=== PATIENT | female | born 1955 | race Two or more races ===

== ENCOUNTER 2021-12-29 10:29 | Day surgery (SDC) | payer BC ==
[2021-12-22 11:45] VITALS: BMI 32.5
[2021-12-29] MEDS ORDERED: CYCLOPENTOLATE 2% OPHTH SOLN 2 ML BOTTLE OS SCH ×2 (10:30→10:40)
[2021-12-29] MEDS ORDERED: PHENYLEPHRINE 2.5% OPTHALMIC DROP BOTTLE OS SCH ×2 (10:30→10:40)
[2021-12-29] MEDS ORDERED: OFLOXACIN 0.3% OPHTHALMIC SOLUTION 5 ML BOTTLE OS SCH ×2 (10:30→10:40)
[2021-12-29] MEDS ORDERED: TROPICAMIDE 1% OPHTH SOLN 15 ML BOTTLE OS SCH ×2 (10:30→10:40)
[2021-12-29] MEDS ORDERED: BSS (NA/CA/MG/K) BALANCED SALT SOLUTION OPHTH SOLN 15 ML BOTTLE ONE (10:34)
[2021-12-29] MEDS ORDERED: TETRACAINE 0.5% OPHTH SOLN 2 ML BOTTLE ONE (10:34)
[2021-12-29] MEDS ORDERED: LIDOCAINE 1% P/F 10 MG/ML VIAL ONE (10:34)
[2021-12-29] MEDS ORDERED: CARBACHOL 0.01% INTRA-OCULAR 1.5 ML VIAL ONE (10:35)
[2021-12-29] MEDS ORDERED: NEO/POLYMYX B SULF/DEXAMETH OPHTHALMIC 5ML BOTTLE ONE (10:35)
[2021-12-29] MEDS ORDERED: PHENYLEPHRINE 2.5% OPHTH SOLN 15 ML BOTTLE ONE (11:02)
[2021-12-29] MEDS ORDERED: TROPICAMIDE 1% OPHTH SOLN 15 ML BOTTLE OS ONE ×2 (11:15→11:20)
[2021-12-29] MEDS ORDERED: PHENYLEPHRINE 2.5% OPHTH SOLN 15 ML BOTTLE OS ONE ×2 (11:15→11:20)
[2021-12-29] MEDS ORDERED: CYCLOPENTOLATE 2% OPHTH SOLN 2 ML BOTTLE OS ONE ×2 (11:15→11:20)
[2021-12-29] MEDS ORDERED: OFLOXACIN 0.3% OPHTHALMIC SOLUTION 5 ML BOTTLE OS ONE ×2 (11:15→11:20)
[2021-12-29] MEDS ORDERED: MIDAZOLAM HCL 2 MG/2 ML SINGLE DOSE VIAL ONE (11:44)
[2021-12-29 12:54] VITALS: RESP 20; TEMP 97.8
[2021-12-29 13:19] VITALS: BP 129/79; PULSE 64
== END 2021-12-29 13:15 | disposition home or self-care (01) ==
LOC: FASU 10:29
PROVIDERS: ATTEND Ophthalmology
PROC: 08RK3JZ Replacement of Left Lens with Synthetic Substitute, Percutaneous Approach (ICD-10-PCS; principal; 2021-12-29 11:56)
DX: H26.8 Other specified cataract (principal)
CPT/HCPCS: 66984; V2632

== ENCOUNTER 2023-01-04 09:34 | Day surgery (SDC) | payer BC ==
[2022-12-28 11:06] VITALS: BMI 30.9
[2023-01-04] MEDS ORDERED: TETRACAINE 0.5% OPHTH SOLN 2 ML BOTTLE ONE (10:00)
[2023-01-04] MEDS ORDERED: LIDOCAINE 1% P/F 10 MG/ML VIAL ONE (10:00)
[2023-01-04] MEDS ORDERED: CARBACHOL 0.01% INTRA-OCULAR 1.5 ML VIAL ONE (10:00)
[2023-01-04] MEDS ORDERED: BSS (NA/CA/MG/K) BALANCED SALT SOLUTION OPHTH SOLN 15 ML BOTTLE ONE (10:00)
[2023-01-04] MEDS ORDERED: NEO/POLYMYX B SULF/DEXAMETH OPHTHALMIC 5ML BOTTLE ONE (10:00)
[2023-01-04] MEDS: PHENYLEPHRINE 2.5% OPTHALMIC DROP 2ML BOTTLE ONE ×3 (10:35→10:45)
[2023-01-04] MEDS: CIPROFLOXACIN 0.3% EYE DROPS 5 ML BOTTLE ONE ×3 (10:35→10:45)
[2023-01-04] MEDS: TROPICAMIDE 1% OPHTH SOLN 15 ML BOTTLE ONE ×3 (10:35→10:45)
[2023-01-04] MEDS: CYCLOPENTOLATE 2% OPHTH SOLN 2 ML BOTTLE ONE ×3 (10:35→10:45)
[2023-01-04] MEDS ORDERED: MIDAZOLAM HCL 2 MG/2 ML SINGLE DOSE VIAL ONE (12:18)
[2023-01-04] MEDS ORDERED: PHENYLEPHRINE/KETOROLAC 4 ML VIAL IO ONE (12:26)
[2023-01-04 12:51] VITALS: BP 130/86; PULSE 60; RESP 16; TEMP 97.9
== END 2023-01-04 13:17 | disposition home or self-care (01) ==
LOC: FASU 09:34
PROVIDERS: ATTEND Ophthalmology
PROC: 08RJ3JZ Replacement of Right Lens with Synthetic Substitute, Percutaneous Approach (ICD-10-PCS; principal; 2023-01-04 12:23)
DX: H26.8 Other specified cataract (principal)
CPT/HCPCS: 66984; V2632; J1097